=== PATIENT | male | born 1970 | race American Indian/Alaskan Native ===

== ENCOUNTER 2019-08-24 21:57 | Emergency (ER) | payer MEDICAID ==
[2019-08-24 22:41] VITALS: BP 120/80; PULSE 73
--- NOTE | 2019-08-24 22:44 | EDM.PDOC ---
ED HPI GENERAL MEDICAL PROBLEM - General Stated Complaint: RT SIDE FACIAL DROOPING/PAIN Time Seen by Provider: 08/24/19 22:20 - History of Present Illness INITIAL COMMENTS - FREE TEXT/NARRATIVE: 49-year-old male who presents to the clinic with complaints of slurred speech, right-sided facial droop, and inability to eat or drink as everything he puts in his mild drools. Patient states symptoms began about 11 hours ago. He states he tried resting but symptoms did not resolve. He did admit that his symptoms began with dry eyes day ago. Patient states he applied eyedrops and started having right-sided facial droop and slurred speech the morning afterwards. 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 He does states that he has a history of epilepsy and takes Depakote daily. He also smokes. He denies any alcohol consumption or illegal drugs. NIHSS scale was 0 and GSC was 15. BS was 91. Right Headache Pain Score (Numeric/FACES): 5 - Related Data Allergies Allergy/AdvReac Type Severity Reaction Status Date / Time codeine Allergy Itching Verified 08/24/19 23:00 tramadol Allergy Seizure Verified 08/24/19 23:00 Home Meds: Home Meds Divalproex Sodium [Depakote] 250 mg PO TID 08/24/19 [History] Past Medical History Cardiovascular History: Reports: Hypertension Musculoskeletal History: Reports: Back Pain, Chronic Neurological History: Reports: Seizure Social & Family History - Family History Family Medical History: Noncontributory ED ROS GENERAL - Review of Systems Review Of Systems: See Below Constitutional: Reports: No Symptoms HEENT: Reports: No Symptoms Respiratory: Reports: No Symptoms Cardiovascular: Reports: No Symptoms Endocrine: Reports: No Symptoms GI/Abdominal: Reports: No Symptoms : Reports: No Symptoms Musculoskeletal: Reports: No Symptoms Skin: Reports: No Symptoms Neurological: Reports: Trouble Speaking, Change in Speech Psychiatric: Reports: No Symptoms Hematologic/Lymphatic: Reports: No Symptoms Immunologic: Reports: No Symptoms ED EXAM, NEURO - Physical Exam Exam: See Below Exam Limited By: No Limitations General Appearance: Alert, No Apparent Distress, Obese Eye Exam: Bilateral Eye: EOMI, Proptosis Ears: Normal External Exam, Normal Canal, Hearing Grossly Normal, Normal TMs Nose: Normal Inspection Throat/Mouth: Normal Inspection, Normal Lips, Normal Teeth, Normal Gums, Normal Oropharynx, Normal Voice, No Airway Compromise Head Exam: Atraumatic, Normocephalic Neck: Normal Inspection, Supple, Non-Tender, Full Range of Motion Respiratory/Chest: No Respiratory Distress, Lungs Clear, Normal Breath Sounds, No Accessory Muscle Use, Chest Non-Tender Cardiovascular: Normal Peripheral Pulses, Regular Rate, Rhythm, No Edema, No Gallop, No JVD, No Murmur, No Rub GI/Abdominal: Normal Bowel Sounds, Soft, Non-Tender, No Organomegaly, No Distention, No Abnormal Bruit, No Mass Neurological: Alert, Normal Mood/Affect, Normal Dorsiflexion, CN II-XII Intact, Normal Plantar Flexion, Normal Gait, Normal Reflexes, No Motor/Sensory Deficits , Oriented x 3 Back Exam: Normal Inspection, Full Range of Motion, NT Extremities: Normal Inspection, Normal Range of Motion, Non-Tender, No Pedal Edema, Normal Capillary Refill Psychiatric: Normal Affect, Flat Affect Skin Exam: Warm, Dry, Intact, Normal Color, No Rash EKG INTERPRETATION EKG Date: 08/24/19 Rhythm: NSR Rate (Beats/Min): 59 Course - Vital Signs Last Recorded V/S: Last Vital Signs Temp 99.1 F 08/24/19 22:00 Pulse 73 08/24/19 22:00 Resp 16 08/24/19 22:00 BP 120/80 08/24/19 22:00 Pulse Ox 97 08/24/19 22:00 - Orders/Labs/Meds Orders: Active Orders 24 hr Category Date Time Status EKG 12 Lead [EKG Documentation Completion] [RC] ROUTINE Care 08/24/19 22:28 Active Labs: Laboratory Tests 08/24/19 08/24/19 08/24/19 Range/Units 22:06 22:06 22:07 PT 9.3 (9.0-12.0) SEC INR 0.9 (0.9-1.2) Sodium 137 (135-145) mmol/L Potassium 4.0 (3.6-5.0) mmol/L Chloride 104 (101-111) mmol/L Carbon Dioxide 26.0 (21.0-31.0) mmol/L Anion Gap 11.0 BUN 14 (7-18) mg/dL Creatinine 0.7 (0.6-1.3) mg/dL Est Cr Clr Drug Dosing 128.91 mL/min Estimated GFR (MDRD) > 60 BUN/Creatinine Ratio 20.00 Glucose 95 (74-105) mg/dL POC Glucose 97 (70-105) mg/dl Calcium 9.0 (8.4-10.2) mg/dl Total Bilirubin 0.6 (0.2-1.0) mg/dL AST 16 (10-42) IU/L ALT 13 (10-60) IU/L Alkaline Phosphatase 60 (42-121) IU/L Troponin I < 0.02 (0.00-0.02) ng/ml Total Protein 7.7 (6.7-8.2) g/dl Albumin 4.2 (3.2-5.5) g/dl Globulin 3.5 Albumin/Globulin Ratio 1.20 - Radiology Interpretation Free Text/Narrative:: PROCEDURE INFORMATION: Exam: CT Head Without Contrast Exam date and time: 08/24/2019 10:33 PM Age: 49 years old Clinical indication: Speech disturbance; Slurred speech TECHNIQUE: Imaging protocol: Computed tomography of the head without contrast. Radiation optimization: All CT scans at this facility use at least one of these dose optimization techniques: automated exposure control; mA and/or kV adjustment per patient size (includes targeted exams where dose is matched to clinical indication); or iterative reconstruction. Other technique: STROKE PROTOCOL was implemented. COMPARISON: CT Head wo Cont 12/18/2016 1:26 PM FINDINGS: Brain: No evidence for acute transcortical infarct. No mass effect or midline shift. No extra-axial collection. No acute intracranial hemorrhage. Basal cisterns are patent. Ventricles: Normal. No ventriculomegaly. Bones/joints: Stable asymmetric decreased attenuation involving the left temporal bone. Sinuses: Small polyp versus retention cyst within the left maxillary sinus. Mastoid air cells: Visualized mastoid air cells are well aerated. Soft tissues: Unremarkable. IMPRESSION: No evidence for acute transcortical infarct, acute intracranial hemorrhage, or mass effect. [place] Stroke Program Early CT Score (ASPECTS) = 10 - Re-Assessments/Exams Free Text/Narrative Re-Assessment/Exam: 49-year-old male who presents to the ER with complaints of slurred speech that began early in the morning. Patient also reports right-sided facial numbness with droop. He states inability to eat food or drink water at that time. He reports a history of Suggs palsy. In the ER, much of his symptoms are not appreciated as patient was noted to be smiling and the next minute saying he cannot smile. He is noted to be opening his eyes simultaneously and later complain he can not open his eyes. Review labs results, CT scan results and EKG with patient. Departure - Departure Time of Disposition: 23:05 Disposition: Home, Self-Care 01 Condition: Fair Clinical Impression: Slurred speech - Discharge Information *PRESCRIPTION DRUG MONITORING PROGRAM REVIEWED*: No *COPY OF PRESCRIPTION DRUG MONITORING REPORT IN PATIENT VERNA: No Forms: ED Department Discharge Additional Instructions: Follow up with PCP in the clinic. Symptoms to return to the ER reviewed with patient and significant. Sepsis Event Note - Focused Exam Date Exam was Performed: 08/25/19 Time Exam was Performed: 15:05 - My Orders Last 24 Hours: My Active Orders 08/24/19 22:28 EKG 12 Lead [EKG Documentation Completion] [RC] ROUTINE - Assessment/Plan Last 24 Hours: My Active Orders 08/24/19 22:28 EKG 12 Lead [EKG Documentation Completion] [RC] ROUTINE
[2019-08-24 22:48] LABS: CHLORIDE,CL 104 mmol/L (101-111); SODIUM,NA 137 mmol/L (135-145)
== END 2019-08-24 23:42 | disposition home or self-care (01) ==
LOC: DL.ED 21:57
DX: R47.81 Slurred speech (principal); G40.909 Epilepsy, unspecified, not intractable, without status epilepticus; I10 Essential (primary) hypertension; M54.9 Dorsalgia, unspecified; G89.29 Other chronic pain; Z88.5 Allergy status to narcotic agent; Z88.8 Allergy status to other drugs, medicaments and biological substances; Z79.899 Other long term (current) drug therapy
CPT/HCPCS: 36415; 70450; 80053; 82962; 84484; 85610; 93005; 99285-25

== ENCOUNTER 2019-08-30 16:54 | Emergency (ER) | payer MEDICAID ==
[2019-08-30 17:56] VITALS: BP 126/104; PULSE 118
[2019-08-30 18:40] LABS: ANION GAP 11.9; CHLORIDE,CL 103 mmol/L (101-111); SODIUM,NA 137 mmol/L (135-145)
[2019-08-30] MEDS ORDERED: Piperacillin/Tazobactam 3.375 GM in Sodium Chloride 0.9% 100 ML IV ONE (20:48)
--- NOTE | 2019-09-09 14:19 | EDM.PDOC ---
Scribed by Sharron Larsen 08/30/191954 for Audra Mg NP <Shwetha Uribe - Last Filed: 08/31/19 01:32> ED HPI GENERAL MEDICAL PROBLEM - General Chief Complaint: Fever Stated Complaint: RIGHT SIDE OF HEAD PAIN Time Seen by Provider: 08/30/19 18:25 - Related Data Allergies Allergy/AdvReac Type Severity Reaction Status Date / Time codeine Allergy Itching Verified 08/30/19 17:57 tramadol Allergy Seizure Verified 08/30/19 17:57 Home Meds: Home Meds Divalproex Sodium [Depakote] 250 mg PO TID 08/24/19 [History] predniSONE 60 mg PO ASDIRECTED 08/30/19 [History] valACYclovir HCl [valACYclovir] 1,000 mg PO BID 08/30/19 [History] Course - Vital Signs Last Recorded V/S: Last Vital Signs Temp 101.7 F H 08/30/19 17:51 Pulse 118 H 08/30/19 17:51 Resp 16 08/30/19 17:51 BP 126/104 H 08/30/19 17:51 Pulse Ox 99 08/30/19 17:51 - Orders/Labs/Meds Labs: Laboratory Tests 08/30/19 08/30/19 08/30/19 Range/Units 18:12 18:12 18:12 WBC 13.7 H (5.0-10.0) 10^3/uL RBC 4.59 L (4.6-6.2) 10^6/uL Hgb 8.6 L (14.0-18.0) g/dL Hct 28.1 L (40.0-54.0) % MCV 61.2 L (80-100) fL MCH 18.7 L (27.0-34.0) pg MCHC 30.6 L (33.0-35.0) g/dL Plt Count 252 (150-450) 10^3/uL Neut % (Auto) 72.2 (42.2-75.2) % Lymph % (Auto) 14.1 L (20.5-50.1) % [place] % (Auto) 13.2 H (2-8) % Eos % (Auto) 0.1 L (1.0-3.0) % Baso % (Auto) 0.4 (0.0-1.0) % Add Manual Diff Yes Neutrophils % (Manual) 78 H (42-75) % Band Neutrophils % 3 % Lymphocytes % (Manual) 12 L (20-50) % Atypical Lymphs % 0 % Monocytes % (Manual) 7 (2-8) % Eosinophils % (Manual) 0 L (1-3) % Basophils % (Manual) 0 Platelet Estimate Adequate Hypochromasia 2+ moderate Poikilocytosis 2+ moderate Anisocytosis 2+ moderate Sodium 137 (135-145) mmol/L Potassium 3.9 (3.6-5.0) mmol/L Chloride 103 (101-111) mmol/L Carbon Dioxide 26.0 (21.0-31.0) mmol/L Anion Gap 11.9 BUN 15 (7-18) mg/dL Creatinine 0.9 (0.6-1.3) mg/dL Est Cr Clr Drug Dosing 100.26 mL/min Estimated GFR (MDRD) > 60 BUN/Creatinine Ratio 16.66 Glucose 105 (74-105) mg/dL Calcium 8.6 (8.4-10.2) mg/dl Total Bilirubin 0.7 (0.2-1.0) mg/dL AST 14 (10-42) IU/L ALT 11 (10-60) IU/L Alkaline Phosphatase 49 (42-121) IU/L C-Reactive Protein 0.6 (0.0-1.3) mg/dL Total Protein 6.9 (6.7-8.2) g/dl Albumin 3.9 (3.2-5.5) g/dl Globulin 3.0 Albumin/Globulin Ratio 1.30 Urine Color (YELLOW) Urine Appearance (CLEAR) Urine pH (5.0-9.0) Ur Specific Williamson (1.005-1.030) Urine Protein (NEGATIVE) Urine Glucose (UA) (NEGATIVE) Urine Ketones (NEGATIVE) Urine Occult Blood (NEGATIVE) Urine Nitrite (NEGATIVE) Urine Bilirubin (NEGATIVE) Urine Urobilinogen (0.2-1.0) mg/dL Ur Leukocyte Esterase (NEGATIVE) Urine Opiates Screen (NEGATIVE) Ur Oxycodone Screen (NEGATIVE) Urine Methadone Screen (NEGATIVE) Ur Barbiturates Screen (NEGATIVE) U Tricyclic Antidepress (NEGATIVE) Ur Phencyclidine Scrn (NEGATIVE) Ur Amphetamine Screen (NEGATIVE) U Methamphetamines Scrn (NEGATIVE) Urine MDMA Screen (NEGATIVE) U Benzodiazepines Scrn (NEGATIVE) Urine Cocaine Screen (NEGATIVE) U Marijuana (THC) Screen (NEGATIVE) Ethyl Alcohol mg/dL 08/30/19 08/30/19 08/30/19 Range/Units 18:12 19:41 19:41 WBC (5.0-10.0) 10^3/uL RBC (4.6-6.2) 10^6/uL Hgb (14.0-18.0) g/dL Hct (40.0-54.0) % MCV (80-100) fL MCH (27.0-34.0) pg MCHC (33.0-35.0) g/dL Plt Count (150-450) 10^3/uL Neut % (Auto) (42.2-75.2) % Lymph % (Auto) (20.5-50.1) % [place] % (Auto) (2-8) % Eos % (Auto) (1.0-3.0) % Baso % (Auto) (0.0-1.0) % Add Manual Diff Neutrophils % (Manual) (42-75) % Band Neutrophils % % Lymphocytes % (Manual) (20-50) % Atypical Lymphs % % Monocytes % (Manual) (2-8) % Eosinophils % (Manual) (1-3) % Basophils % (Manual) Platelet Estimate Hypochromasia Poikilocytosis Anisocytosis Sodium (135-145) mmol/L Potassium (3.6-5.0) mmol/L Chloride (101-111) mmol/L Carbon Dioxide (21.0-31.0) mmol/L Anion Gap BUN (7-18) mg/dL Creatinine (0.6-1.3) mg/dL Est Cr Clr Drug Dosing mL/min Estimated GFR (MDRD) BUN/Creatinine Ratio Glucose (74-105) mg/dL Calcium (8.4-10.2) mg/dl Total Bilirubin (0.2-1.0) mg/dL AST (10-42) IU/L ALT (10-60) IU/L Alkaline Phosphatase (42-121) IU/L C-Reactive Protein (0.0-1.3) mg/dL Total Protein (6.7-8.2) g/dl Albumin (3.2-5.5) g/dl Globulin Albumin/Globulin Ratio Urine Color Yellow (YELLOW) Urine Appearance Clear (CLEAR) Urine pH >= 9.0 (5.0-9.0) Ur Specific Williamson 1.020 (1.005-1.030) Urine Protein Negative (NEGATIVE) Urine Glucose (UA) Negative (NEGATIVE) Urine Ketones Negative (NEGATIVE) Urine Occult Blood Negative (NEGATIVE) Urine Nitrite Negative (NEGATIVE) Urine Bilirubin Negative (NEGATIVE) Urine Urobilinogen 1.0 (0.2-1.0) mg/dL Ur Leukocyte Esterase Negative (NEGATIVE) Urine Opiates Screen Negative (NEGATIVE) Ur Oxycodone Screen Negative (NEGATIVE) Urine Methadone Screen Negative (NEGATIVE) Ur Barbiturates Screen Negative (NEGATIVE) U Tricyclic Antidepress Negative (NEGATIVE) Ur Phencyclidine Scrn Negative (NEGATIVE) Ur Amphetamine Screen Negative (NEGATIVE) U Methamphetamines Scrn Negative (NEGATIVE) Urine MDMA Screen Negative (NEGATIVE) U Benzodiazepines Scrn Negative (NEGATIVE) Urine Cocaine Screen Negative (NEGATIVE) U Marijuana (THC) Screen Positive H (NEGATIVE) Ethyl Alcohol < 5 mg/dL Meds: Medications Discontinued Medications Generic Name Dose Route Start Last Admin Trade Name Freq PRN Reason Stop Dose Admin Piperacillin Sod/Tazobactam 100 mls @ 200 mls/hr 08/30/19 20:48 08/30/19 20: 50 Sod 3.375 gm/ Sodium Chloride IV 08/30/19 21:17 200 mls/hr ONETIME ONE Administration - Re-Assessments/Exams Free Text/Narrative Re-Assessment/Exam: Tx via [facility] to [facility]. Departure - Departure Time of Disposition: 21:18 Disposition: DC/Tfer to Acute Hospital 02 Condition: Undetermined Clinical Impression: Pneumonia - Discharge Information Referrals: PCP,Unobtain [Primary Care Provider] - Forms: ED Department Discharge Sepsis Event Note - Focused Exam Date Exam was Performed: 08/31/19 Time Exam was Performed: 01:32 <Audra Mg - Last Filed: 09/09/19 14:18> ED HPI GENERAL MEDICAL PROBLEM - General Source of Information: Reports: Patient, RN, RN Notes Reviewed History Limitations: Reports: No Limitations - History of Present Illness INITIAL COMMENTS - FREE TEXT/NARRATIVE: Patient presents to ER with complaint of facial droop and pain on right side of face. He has had some difficulty eating and drinking. The pain is rated as a 6-7 /10. He has been taking Tylenol every 4 hours. He has had chills, fever, lethargy, tingling in right side of neck. No nausea, vomiting, or diarrhea.He has not been exposed to flu. He has no extremity weakness. He has no history of stroke. Onset: Gradual Duration: Getting Worse Severity: Moderate Improves with: Reports: None Worsens with: Reports: None Associated Symptoms: Reports: No Other Symptoms Right Face/Facial Pain Score (Numeric/FACES): 6 Past Medical History HEENT History: Reports: Other (See Below) Other HEENT History: dentures - top and bottom Cardiovascular History: Reports: Hypertension Musculoskeletal History: Reports: Back Pain, Chronic Neurological History: Reports: Seizure Other Neuro History: bells palsy - Infectious Disease History Infectious Disease History: Reports: None Social & Family History - Family History Family Medical History: Noncontributory - Caffeine Use Caffeine Use: Reports: Tea ED ROS ENT - Review of Systems Review Of Systems: Comprehensive ROS is negative, except as noted in HPI. ED EXAM, ENT - Physical Exam Exam: See Below Exam Limited By: No Limitations General Appearance: Lethargic Eye Exam: Bilateral Eye: EOMI, Normal Inspection, PERRL Ears: Normal External Exam, Normal Canal, Hearing Grossly Normal, Normal TMs Nose: Normal Inspection, Normal Mucousa, No Blood Mouth/Throat: Normal Inspection, Normal Gums, Normal Lips, Normal Oropharynx, Normal Teeth Head: Other (right facial droop) Neck: Other (tender right side) Respiratory/Chest: No Respiratory Distress, Lungs Clear, Normal Breath Sounds, No Accessory Muscle Use, Chest Non-Tender Cardiovascular: Normal Peripheral Pulses, Regular Rate, Rhythm, No Edema, No Gallop, No JVD, No Murmur, No Rub GI/Abdominal: Normal Bowel Sounds, Soft, Non-Tender, No Organomegaly, No Distention, No Abnormal Bruit, No Mass (Male) Exam: Deferred Rectal (Males) Exam: Deferred Back: Normal Inspection, Full Range of Motion Extremities: Normal Inspection, Normal Range of Motion, Non-Tender, No Pedal Edema, Normal Capillary Refill Neurological: Alert, Oriented, CN II-XII Intact, Normal Cognition, Normal Gait, Normal Reflexes, No Motor/Sensory Deficits, Other (lethargic) Psychiatric: Flat Affect Skin: Warm Course - Vital Signs Last Recorded V/S: Last Vital Signs Temp 101.7 F H 08/30/19 17:51 Pulse 118 H 08/30/19 17:51 Resp 16 08/30/19 17:51 BP 126/104 H 08/30/19 17:51 Pulse Ox 99 08/30/19 17:51 - Orders/Labs/Meds Labs: Laboratory Tests 08/30/19 08/30/19 08/30/19 Range/Units 18:12 18:12 18:12 WBC 13.7 H (5.0-10.0) 10^3/uL RBC 4.59 L (4.6-6.2) 10^6/uL Hgb 8.6 L (14.0-18.0) g/dL Hct 28.1 L (40.0-54.0) % MCV 61.2 L (80-100) fL MCH 18.7 L (27.0-34.0) pg MCHC 30.6 L (33.0-35.0) g/dL Plt Count 252 (150-450) 10^3/uL Neut % (Auto) 72.2 (42.2-75.2) % Lymph % (Auto) 14.1 L (20.5-50.1) % [place] % (Auto) 13.2 H (2-8) % Eos % (Auto) 0.1 L (1.0-3.0) % Baso % (Auto) 0.4 (0.0-1.0) % Add Manual Diff Yes Neutrophils % (Manual) 78 H (42-75) % Band Neutrophils % 3 % Lymphocytes % (Manual) 12 L (20-50) % Atypical Lymphs % 0 % Monocytes % (Manual) 7 (2-8) % Eosinophils % (Manual) 0 L (1-3) % Basophils % (Manual) 0 Platelet Estimate Adequate Hypochromasia 2+ moderate Poikilocytosis 2+ moderate Anisocytosis 2+ moderate Sodium 137 (135-145) mmol/L Potassium 3.9 (3.6-5.0) mmol/L Chloride 103 (101-111) mmol/L Carbon Dioxide 26.0 (21.0-31.0) mmol/L Anion Gap 11.9 BUN 15 (7-18) mg/dL Creatinine 0.9 (0.6-1.3) mg/dL Est Cr Clr Drug Dosing 100.26 mL/min Estimated GFR (MDRD) > 60 BUN/Creatinine Ratio 16.66 Glucose 105 (74-105) mg/dL Calcium 8.6 (8.4-10.2) mg/dl Total Bilirubin 0.7 (0.2-1.0) mg/dL AST 14 (10-42) IU/L ALT 11 (10-60) IU/L Alkaline Phosphatase 49 (42-121) IU/L C-Reactive Protein 0.6 (0.0-1.3) mg/dL Total Protein 6.9 (6.7-8.2) g/dl Albumin 3.9 (3.2-5.5) g/dl Globulin 3.0 Albumin/Globulin Ratio 1.30 Urine Color (YELLOW) Urine Appearance (CLEAR) Urine pH (5.0-9.0) Ur Specific Williamson (1.005-1.030) Urine Protein (NEGATIVE) Urine Glucose (UA) (NEGATIVE) Urine Ketones (NEGATIVE) Urine Occult Blood (NEGATIVE) Urine Nitrite (NEGATIVE) Urine Bilirubin (NEGATIVE) Urine Urobilinogen (0.2-1.0) mg/dL Ur Leukocyte Esterase (NEGATIVE) Urine Opiates Screen (NEGATIVE) Ur Oxycodone Screen (NEGATIVE) Urine Methadone Screen (NEGATIVE) Ur Barbiturates Screen (NEGATIVE) U Tricyclic Antidepress (NEGATIVE) Ur Phencyclidine Scrn (NEGATIVE) Ur Amphetamine Screen (NEGATIVE) U Methamphetamines Scrn (NEGATIVE) Urine MDMA Screen (NEGATIVE) U Benzodiazepines Scrn (NEGATIVE) Urine Cocaine Screen (NEGATIVE) U Marijuana (THC) Screen (NEGATIVE) Ethyl Alcohol mg/dL 08/30/19 08/30/19 08/30/19 Range/Units 18:12 19:41 19:41 WBC (5.0-10.0) 10^3/uL RBC (4.6-6.2) 10^6/uL Hgb (14.0-18.0) g/dL Hct (40.0-54.0) % MCV (80-100) fL MCH (27.0-34.0) pg MCHC (33.0-35.0) g/dL Plt Count (150-450) 10^3/uL Neut % (Auto) (42.2-75.2) % Lymph % (Auto) (20.5-50.1) % [place] % (Auto) (2-8) % Eos % (Auto) (1.0-3.0) % Baso % (Auto) (0.0-1.0) % Add Manual Diff Neutrophils % (Manual) (42-75) % Band Neutrophils % % Lymphocytes % (Manual) (20-50) % Atypical Lymphs % % Monocytes % (Manual) (2-8) % Eosinophils % (Manual) (1-3) % Basophils % (Manual) Platelet Estimate Hypochromasia Poikilocytosis Anisocytosis Sodium (135-145) mmol/L Potassium (3.6-5.0) mmol/L Chloride (101-111) mmol/L Carbon Dioxide (21.0-31.0) mmol/L Anion Gap BUN (7-18) mg/dL Creatinine (0.6-1.3) mg/dL Est Cr Clr Drug Dosing mL/min Estimated GFR (MDRD) BUN/Creatinine Ratio Glucose (74-105) mg/dL Calcium (8.4-10.2) mg/dl Total Bilirubin (0.2-1.0) mg/dL AST (10-42) IU/L ALT (10-60) IU/L Alkaline Phosphatase (42-121) IU/L C-Reactive Protein (0.0-1.3) mg/dL Total Protein (6.7-8.2) g/dl Albumin (3.2-5.5) g/dl Globulin Albumin/Globulin Ratio Urine Color Yellow (YELLOW) Urine Appearance Clear (CLEAR) Urine pH >= 9.0 (5.0-9.0) Ur Specific Williamson 1.020 (1.005-1.030) Urine Protein Negative (NEGATIVE) Urine Glucose (UA) Negative (NEGATIVE) Urine Ketones Negative (NEGATIVE) Urine Occult Blood Negative (NEGATIVE) Urine Nitrite Negative (NEGATIVE) Urine Bilirubin Negative (NEGATIVE) Urine Urobilinogen 1.0 (0.2-1.0) mg/dL Ur Leukocyte Esterase Negative (NEGATIVE) Urine Opiates Screen Negative (NEGATIVE) Ur Oxycodone Screen Negative (NEGATIVE) Urine Methadone Screen Negative (NEGATIVE) Ur Barbiturates Screen Negative (NEGATIVE) U Tricyclic Antidepress Negative (NEGATIVE) Ur Phencyclidine Scrn Negative (NEGATIVE) Ur Amphetamine Screen Negative (NEGATIVE) U Methamphetamines Scrn Negative (NEGATIVE) Urine MDMA Screen Negative (NEGATIVE) U Benzodiazepines Scrn Negative (NEGATIVE) Urine Cocaine Screen Negative (NEGATIVE) U Marijuana (THC) Screen Positive H (NEGATIVE) Ethyl Alcohol < 5 mg/dL Meds: Medications Discontinued Medications Generic Name Dose Route Start Last Admin Trade Name Freq PRN Reason Stop Dose Admin Piperacillin Sod/Tazobactam 100 mls @ 200 mls/hr 08/30/19 20:48 08/30/19 20: 50 Sod 3.375 gm/ Sodium Chloride IV 08/30/19 21:17 200 mls/hr ONETIME ONE Administration - Radiology Interpretation Free Text/Narrative:: Chest xray: FINDINGS: Lungs: Minor atelectasis in the lower left lung field. Question of minimal infrahilar infiltrate on the right. Pleural space: Unremarkable. No pleural effusion. No pneumothorax. Heart/Mediastinum: Unremarkable. No cardiomegaly. Upper abdomen: Colonic interposition between the diaphragm and liver on the right incidental. Bones/joints: Unremarkable. IMPRESSION: 1. Minor atelectasis in the left lung base. 2. Question of minimal infrahilar infiltrate on the right. 3. No other chest findings. Thank you for allowing us to participate in the care of your patient. Dictated and Authenticated by: José Manuel Ferguson MD 08/30/2019 7:53 PM Central Time ([place] & [place]) See rad report Departure - Departure Condition: Poor - Discharge Information *PRESCRIPTION DRUG MONITORING PROGRAM REVIEWED*: No *COPY OF PRESCRIPTION DRUG MONITORING REPORT IN PATIENT VERNA: No Sepsis Event Note - Focused Exam Date Exam was Performed: 09/09/19 Time Exam was Performed: 14:17 I have read and agree with the documentation that has been completed regarding this visit. By signing this record, I attest that the documentation was completed in my physical presence and is an accurate record of the encounter.
== END 2019-08-30 20:50 ==
LOC: DL.ED 16:54
DX: J18.9 Pneumonia, unspecified organism (principal); I10 Essential (primary) hypertension; Z88.5 Allergy status to narcotic agent; Z88.6 Allergy status to analgesic agent; Z79.899 Other long term (current) drug therapy
CPT/HCPCS: 36415; 71045; 80053; 80305; 80320; 81003; 85025; 86140; 87081; 87430; 87804; 96374; 99283; J2543; J7050; G0480

== ENCOUNTER 2022-02-18 06:34 | Emergency (ER) | payer MEDICAID, OTHER ==
[2022-02-18] MEDS ORDERED: Orphenadrine 60 MG/2 ML Inj ONE (07:43)
[2022-02-18] MEDS ORDERED: Ketorolac 30 MG/ML SDV ONE (07:43)
[2022-02-18 08:45] VITALS: BP 134/78; PULSE 69
== END 2022-02-18 09:21 | disposition home or self-care (01) ==
LOC: DL.ED 06:34
DX: M51.37 Other intervertebral disc degeneration, lumbosacral region (principal); I10 Essential (primary) hypertension; Z88.8 Allergy status to other drugs, medicaments and biological substances; Z79.899 Other long term (current) drug therapy
CPT/HCPCS: 72070; 72100; 99283; J1885; J2360

== ENCOUNTER 2024-12-29 15:05 | Emergency (ER) | payer SELFPAY ==
[2024-12-29] MEDS ORDERED: Sodium Chloride 0.9% 10 ML Syringe FLUSH PRN (15:13)
[2024-12-29 15:25] LABS: BASOPHILS PERCENT AUTO 0.4 % (0.0-1.0); HEMATOCRIT 30.5 % (40.0-54.0); HEMOGLOBIN 9.3 g/dL (14.0-18.0); LYMPHOCYTES PERCENT AUTO 5.6 % (20.5-50.1); MEAN CORPUSCULAR HEMOGLOBIN 17.7 pg (27.0-34.0); MEAN CORPUSCULAR HGB CONC 30.5 g/dL (33.0-35.0); MONOCYTES PERCENT AUTO 4.8 % (2-8); NEUTROPHILS PERCENT AUTO 89.2 % (42.2-75.2); PLATELET COUNT,PLT 371 10^3/uL (150-450); RED BLOOD CELL COUNT 5.26 10^6/uL (4.6-6.2); WHITE BLOOD CELL COUNT,WBC 17.9 10^3/uL (5.0-10.0)
[2024-12-29 15:42] LABS: A/G RATIO 1.3; ALANINE AMINOTRANSFERASE,ALT 18 U/L (16-63); ALBUMIN 4.3 g/dL (3.4-5.0); ALKALINE PHOSPHATASE 75 U/L (46-116); ASPARTATE AMNIOTRANSFERASE,AST 19 U/L (15-37); BILIRUBIN TOTAL 1.8 mg/dL (0.2-1.0); BLOOD UREA NITROGEN,BUN 12 mg/dL (7-18); BUN/CREATININE RATIO 11.8 (No establ ref range); C-REACTIVE PROTEIN < 0.50 ng/dL (<=0.50); CALCIUM 9.3 mg/dL (8.5-10.1); CARBON DIOXIDE,CO2 23 mmol/L (21-32); CHLORIDE,CL 106 mmol/L (98-107); CREATININE 1.02 mg/dL (0.70-1.30); ESTIMATED GFR 86 mL/min (>=60); GLUCOSE RANDOM 92 mg/dL (70-99); MAGNESIUM 2.3 mg/dL (1.8-2.4); PROTEIN TOTAL,TP 7.7 g/dL (6.4-8.2); SODIUM,NA 142 mmol/L (136-145)
[2024-12-29 15:46] LABS: LACTIC ACID 1.8 mmol/L (0.4-2.0)
[2024-12-29 15:55] VITALS: BP 120/78; PULSE 73
[2024-12-29] MEDS: Potassium Chloride 10 MEQ Tab.ER PO ONE (16:22)
== END 2024-12-29 16:38 | disposition home or self-care (01) ==
LOC: DL.ED 15:05
DX: G40.909 Epilepsy, unspecified, not intractable, without status epilepticus (principal); D64.9 Anemia, unspecified; I10 Essential (primary) hypertension; Z88.5 Allergy status to narcotic agent; Z79.899 Other long term (current) drug therapy
CPT/HCPCS: 36415; 70450; 80053; 83605; 83735; 85025; 86140; 99284; 99285; A9270